=== PATIENT | male | born 1985 | race African-American/Black ===

== ENCOUNTER 2021-03-07 16:06 | Emergency (ER) | payer OTHER ==
[~2021-03-07] VITALS: Ht 177.8 cm; Wt 70.8 kg
[2021-03-07 16:32] VITALS: BP 140/82
== END 2021-03-07 18:59 | disposition left against medical advice (07) ==
LOC: M.ERS 16:06
DX: M54.9 Dorsalgia, unspecified (principal); Z53.21 Procedure and treatment not carried out due to patient leaving prior to being seen by health care provider